=== PATIENT | female | born 1995 | race American Indian/Alaskan Native ===

== ENCOUNTER 2017-04-27 15:42 | Emergency (ER) | payer SELFPAY ==
--- NOTE | 2017-04-27 16:00 | Emergency Department Report ---
Chief Complaint: Abdominal Pain Stated Complaint: ABD/BACK PAIN Time Seen by Provider: 04/27/17 15:57 - HPI History of Present Illness: pt c/o chronic back pain and new abd pain. - ROS Review of Systems: -n/v/d - dysuria - Exam Physical Exam: PT looks well, non toxic. pt's abd soft, luq ttp MSE screening note: Focused history and physical exam performed. Due to findings the following was ordered: labs ED Disposition for MSE Condition: Stable
[2017-04-27 16:27] LABS: Basophils % (Auto) 0.5 % (0.0-1.8); Eosinophils % (Auto) 1.1 % (0.0-4.3); Hematocrit 45.5 % (30.3-42.9); Hemoglobin 15.1 gm/dl (10.1-14.3); Mean Corpuscular HGB Conc 33 % (30-34); Mean Corpuscular Hemoglobin 31 pg (28-32); Mean Corpuscular Volume 94 fl (79-97); Platelet Count 216 K/mm3 (140-440); Red Blood Count 4.85 M/mm3 (3.65-5.03); Red Cell Distribution Width 13.2 % (13.2-15.2); White Blood Count 5.8 K/mm3 (4.5-11.0)
[2017-04-27 17:10] LABS: Bilirubin,Urine NEG (Negative); Blood,Urine NEG (Negative); Ketones,Urine NEG (Negative); Leukocyte Esterase,Urine NEG (Negative); Mucus,Urine FEW /HPF; Nitrite,Urine NEG (Negative); Protein,Urine <15 mg/dL mg/dL (Negative); RBC,Urine < 1.0 /HPF (0.0-6.0); Urobilinogen,Urine < 2.0 mg/dL (<2.0)
[2017-04-27 17:12] LABS: WBC,Urine < 1.0 /HPF (0.0-6.0)
[2017-04-27 17:56] LABS: Alanine Aminotransferase 11 units/L (7-56); Albumin 4.9 g/dL (3.9-5); Albumin/Globulin Ratio 1.5 %; Alkaline Phosphatase 80 units/L (35-129); BUN/Creatinine Ratio 16.66; Blood Urea Nitrogen 10 mg/dL (7-17); Calcium 9.4 mg/dL (8.4-10.2); Carbon Dioxide 24 mmol/L (22-30); Glucose 84 mg/dL (65-100); Total Protein 8.1 g/dL (6.3-8.2)
[2017-04-27 17:57] LABS: Anion Gap 20 mmol/L; Chloride 101.5 mmol/L (98-107); Potassium 4.1 mmol/L (3.6-5.0); Sodium 141 mmol/L (137-145)
[2017-04-27] MEDS ORDERED: TYLENOL ONE (22:31)
[2017-04-27] MEDS ORDERED: TYLENOL PO ONE (22:33)
[2017-04-27] MEDS ORDERED: NACL 0.9% 1000 ML 1,000 ML IV ONE (23:11)
[2017-04-27] MEDS ORDERED: MORPHINE IV ONE (23:11)
[2017-04-27] MEDS ORDERED: TORADOL IV ONE (23:11)
--- NOTE | 2017-04-27 23:12 | Emergency Department Report ---
ED General Adult HPI - General Chief complaint: Abdominal Pain Stated complaint: ABD/BACK PAIN Time Seen by Provider: 04/27/17 15:57 Source: patient, RN notes reviewed Mode of arrival: Ambulatory Limitations: No Limitations - History of Present Illness Initial comments: This is a 22-year-old female. She is previously unknown to me. She does not have a primary care doctor. She denies a history of abdominal surgeries. The patient presents to the ER complaining of lower back pain and lower abdominal pain. The lower back pain is bilateral paralumbar, sharp, achy, and it has been present "since I was born." It does not radiate anywhere, there is no bladder or bowel retention or incontinence, and there is no saddle anesthesia. The patient also complains of lower abdominal pain. The pain is in the bilateral lower quadrants and radiates to the back. It started yesterday morning. No fevers or chills. No chest pain or shortness of breath. No vaginal discharge. No irritative or obstructive urinary symptoms. The patient indicates that she is not sexually active with men. -: Gradual Location: back, abdomen, pelvis Radiation: back Severity scale (0 -10): 9 Quality: aching Consistency: intermittent Improves with: rest Worsens with: movement Associated Symptoms: denies: confusion, chest pain, cough, diaphoresis, fever/ chills, headaches, loss of appetite, malaise, nausea/vomiting, rash, shortness of breath, syncope, weakness - Related Data Previous Rx's Medication Instructions Recorded Last Taken Type Ibuprofen [Motrin] 600 mg PO Q8H PRN #30 tablet 04/28/17 Unknown Rx Ondansetron [Zofran Odt] 4 mg PO QID PRN #20 tab.rapdis 04/28/17 Unknown Rx Polyethylene Glycol 3350 [Miralax 17 gm PO QDAY #30 packet 04/28/17 Unknown Rx 3350] Allergies Allergy/AdvReac Type Severity Reaction Status Date / Time No Known Allergies Allergy Verified 04/27/17 22:35 ED Review of Systems ROS: Stated complaint: ABD/BACK PAIN Other details as noted in HPI Constitutional: denies: fever Eyes: denies: vision change ENT: denies: epistaxis Respiratory: denies: cough Cardiovascular: denies: chest pain Gastrointestinal: abdominal pain Genitourinary: as per HPI. denies: dysuria Musculoskeletal: back pain Skin: denies: rash, lesions Neurological: as per HPI Psychiatric: as per HPI ED Past Medical Hx - Past Medical History Previous Medical History?: No - Surgical History Past Surgical History?: No - Social History Smoking Status: Current Every Day Smoker Substance Use Type: Alcohol - Medications Home Medications: Home Medications Medication Instructions Recorded Confirmed Last Taken Type Ibuprofen [Motrin] 600 mg PO Q8H PRN #30 tablet 04/28/17 Unknown Rx Ondansetron [Zofran Odt] 4 mg PO QID PRN #20 tab.rapdis 04/28/17 Unknown Rx Polyethylene Glycol 3350 [Miralax 17 gm PO QDAY #30 packet 04/28/17 Unknown Rx 3350] ED Physical Exam - General Limitations: No Limitations General appearance: alert, in no apparent distress - Head Head exam: Present: atraumatic, normocephalic - Eye Eye exam: Present: normal appearance, EOMI. Absent: nystagmus - ENT ENT exam: Present: normal exam, normal orophraynx, mucous membranes moist, normal external ear exam - Neck Neck exam: Present: normal inspection, full ROM. Absent: tenderness, meningismus - Respiratory Respiratory exam: Present: normal lung sounds bilaterally. Absent: respiratory distress, wheezes, rales, rhonchi, stridor, chest wall tenderness, accessory muscle use, decreased breath sounds, prolonged expiratory - Cardiovascular Cardiovascular Exam: Present: regular rate, normal rhythm, normal heart sounds. Absent: bradycardia, tachycardia, irregular rhythm, systolic murmur, diastolic murmur, rubs, gallop - GI/Abdominal GI/Abdominal exam: Present: soft, tenderness, normal bowel sounds, other (there is mild bilateral lower quadrant abdominal tenderness. There is no rebound, guarding or peritoneal signs.). Absent: distended, guarding, rebound, rigid, pulsatile mass - External exam: Present: normal external exam Speculum exam: Present: normal speculum exam, cervical discharge, other ( escorted by nurse Lizabeth Faustin). Absent: vaginal bleeding Bi-manual exam: Present: normal bi-manual exam. Absent: cervical motion tendernes, adnexal tenderness, adnexal mass - Extremities Exam Extremities exam: Present: normal inspection, full ROM, normal capillary refill. Absent: tenderness, pedal edema, joint swelling, calf tenderness - Back Exam Back exam: Present: normal inspection, full ROM. Absent: tenderness, CVA tenderness (R), CVA tenderness (L), muscle spasm, paraspinal tenderness, vertebral tenderness - Neurological Exam Neurological exam: Present: alert, oriented X3, normal gait, other (Extraocular movements intact. Tongue midline. No facial droop. Facial sensation intact to light touch in the V1, V2, V3 distribution bilaterally. 5 and 5 strength in 4 extremities.. Sensation is intact to light touch in 4 extremities.). Absent : motor sensory deficit - Psychiatric Psychiatric exam: Present: normal affect, normal mood - Skin Skin exam: Present: warm, dry, intact, normal color. Absent: rash ED Course Vital Signs 04/27/17 04/27/17 04/27/17 15:55 22:29 22:56 Temperature 98.2 F 99.9 F H Pulse Rate 67 88 Respiratory 16 16 20 Rate Blood Pressure 124/58 109/64 O2 Sat by Pulse 100 100 100 Oximetry 04/28/17 04/28/17 00:01 00:02 Temperature Pulse Rate Respiratory 20 20 Rate Blood Pressure O2 Sat by Pulse Oximetry - Reevaluation(s) Reevaluation #1: 04/28/17 00:31 Differential diagnosis: Urinary tract infection, endometriosis, ovarian cyst, colitis, diverticulitis, ovarian torsion, pelvic inflammatory disease Assessment and plan: 22-year-old female with lower abdominal pain and back pain. She has a low-grade temperature, has a GCS of 15, with an NIH score of 0. Laboratory studies unremarkable, urinalysis is not consistent with UTI. We will treat the patient symptomatically. We will perform a gynecological examination. CT scan is pending. Reevaluation #2: 04/28/17 01:20 Gynecologic examination is benign. CT scan suggests constipation versus slow transit. Abdomen is soft on repeat examination. Given benign gynecologic examination, I don't believe patient requires emergent gynecologic imaging at this time. Patient will be discharged with pain medication, nausea medication, and MiraLAX. Diet and lifestyle modification instructions are reviewed with the patient, who verbalized understanding. Return precautions are reviewed. ED Medical Decision Making - Lab Data Result diagrams: 04/27/17 16:14 04/27/17 16:14 Vital Signs 04/27/17 04/27/17 04/27/17 15:55 22:29 22:56 Temperature 98.2 F 99.9 F H Pulse Rate 67 88 Respiratory 16 16 20 Rate Blood Pressure 124/58 109/64 O2 Sat by Pulse 100 100 100 Oximetry 04/28/17 04/28/17 00:01 00:02 Temperature Pulse Rate Respiratory 20 20 Rate Blood Pressure O2 Sat by Pulse Oximetry Lab Results 04/27/17 04/27/17 04/27/17 Range/Units 16:14 16:14 16:14 WBC 5.8 (4.5-11.0) K/mm3 RBC 4.85 (3.65-5.03) M/mm3 Hgb 15.1 H (10.1-14.3) gm/dl Hct 45.5 H (30.3-42.9) % MCV 94 (79-97) fl MCH 31 (28-32) pg MCHC 33 (30-34) % RDW 13.2 (13.2-15.2) % Plt Count 216 (140-440) K/mm3 Lymph % (Auto) 26.3 (13.4-35.0) % [place] % (Auto) 6.8 (0.0-7.3) % Eos % (Auto) 1.1 (0.0-4.3) % Baso % (Auto) 0.5 (0.0-1.8) % Lymph # 1.5 (1.2-5.4) K/mm3 [place] # 0.4 (0.0-0.8) K/mm3 Eos # 0.1 (0.0-0.4) K/mm3 Baso # 0.0 (0.0-0.1) K/mm3 Seg Neutrophils % 65.3 (40.0-70.0) % Seg Neutrophils # 3.8 (1.8-7.7) K/mm3 Sodium 141 (137-145) mmol/L Potassium 4.1 (3.6-5.0) mmol/L Chloride 101.5 (98-107) mmol/L Carbon Dioxide 24 (22-30) mmol/L Anion Gap 20 mmol/L BUN 10 (7-17) mg/dL Creatinine 0.6 L (0.7-1.2) mg/dL Estimated GFR > 60 ml/min BUN/Creatinine Ratio 16.66 % Glucose 84 (65-100) mg/dL Calcium 9.4 (8.4-10.2) mg/dL Total Bilirubin 0.30 (0.1-1.2) mg/dL AST 16 (5-40) units/L ALT 11 (7-56) units/L Alkaline Phosphatase 80 (35-129) units/L Total Protein 8.1 (6.3-8.2) g/dL Albumin 4.9 (3.9-5) g/dL Albumin/Globulin Ratio 1.5 % Lipase (13-60) units/L HCG, Qual Negative (Negative) Urine Color (Yellow) Urine Turbidity (Clear) Urine pH (5.0-7.0) Ur Specific [place] (1.003-1.030) Urine Protein (Negative) mg/dL Urine Glucose (UA) (Negative) mg/dL Urine Ketones (Negative) mg/dL Urine Blood (Negative) Urine Nitrite (Negative) Urine Bilirubin (Negative) Urine Urobilinogen (<2.0) mg/dL Ur Leukocyte Esterase (Negative) Urine WBC (Auto) (0.0-6.0) /HPF Urine RBC (Auto) (0.0-6.0) /HPF U Epithel Cells (Auto) (0-13.0) /HPF Urine Mucus /HPF 04/27/17 04/27/17 Range/Units 16:14 16:47 WBC (4.5-11.0) K/mm3 RBC (3.65-5.03) M/mm3 Hgb (10.1-14.3) gm/dl Hct (30.3-42.9) % MCV (79-97) fl MCH (28-32) pg MCHC (30-34) % RDW (13.2-15.2) % Plt Count (140-440) K/mm3 Lymph % (Auto) (13.4-35.0) % [place] % (Auto) (0.0-7.3) % Eos % (Auto) (0.0-4.3) % Baso % (Auto) (0.0-1.8) % Lymph # (1.2-5.4) K/mm3 [place] # (0.0-0.8) K/mm3 Eos # (0.0-0.4) K/mm3 Baso # (0.0-0.1) K/mm3 Seg Neutrophils % (40.0-70.0) % Seg Neutrophils # (1.8-7.7) K/mm3 Sodium (137-145) mmol/L Potassium (3.6-5.0) mmol/L Chloride (98-107) mmol/L Carbon Dioxide (22-30) mmol/L Anion Gap mmol/L BUN (7-17) mg/dL Creatinine (0.7-1.2) mg/dL Estimated GFR ml/min BUN/Creatinine Ratio % Glucose (65-100) mg/dL Calcium (8.4-10.2) mg/dL Total Bilirubin (0.1-1.2) mg/dL AST (5-40) units/L ALT (7-56) units/L Alkaline Phosphatase (35-129) units/L Total Protein (6.3-8.2) g/dL Albumin (3.9-5) g/dL Albumin/Globulin Ratio % Lipase 23 (13-60) units/L HCG, Qual (Negative) Urine Color Straw (Yellow) Urine Turbidity Clear (Clear) Urine pH 6.0 (5.0-7.0) Ur Specific [place] 1.008 (1.003-1.030) Urine Protein <15 mg/dl (Negative) mg/dL Urine Glucose (UA) Neg (Negative) mg/dL Urine Ketones Neg (Negative) mg/dL Urine Blood Neg (Negative) Urine Nitrite Neg (Negative) Urine Bilirubin Neg (Negative) Urine Urobilinogen < 2.0 (<2.0) mg/dL Ur Leukocyte Esterase Neg (Negative) Urine WBC (Auto) < 1.0 (0.0-6.0) /HPF Urine RBC (Auto) < 1.0 (0.0-6.0) /HPF U Epithel Cells (Auto) 3.0 (0-13.0) /HPF Urine Mucus Few /HPF - Radiology Data Radiology results: report reviewed, image reviewed There is a left-sided adnexal cyst. There is likely physiologic fluid in the pelvis. Ears moderate stool burden with equalization of the terminal ileum. Possible slow transit/constipation. Critical care attestation.: If time is entered above; I have spent that time in minutes in the direct care of this critically ill patient, excluding procedure time. ED Disposition Clinical Impression: Abdominal pain Disposition: TO HOME OR SELFCARE Is pt being admited?: No Does the pt Need Aspirin: No Condition: Stable Instructions: Abdominal Pain (ED), High Fiber Diet (ED), Constipation (ED) Additional Instructions: Take the pain medication, nausea medication as directed. Drink 6-8 cups of water per day. Increased consumption of fruits, fiber, vegetables, green vegetables. Follow up with a primary care doctor or documentation supervisor within the next 10-[address] Corcoran is a local primary care doctor. Dr. Mabry is a local gynecology specialist. Symptoms most likely coming from constipation. This will likely take weeks to months to improve. Use the MiraLAX as directed, but this medication will work best if you begin to consume appropriate quantity of water. Dr. Ritchie is a local gastroenterology specialist. If abdominal pain and constipation persist for more than 6-8 weeks, please contact his office to arrange follow-up. Return to the ER right away with ear pain, worsened pain, migration of pain, fevers, chills, chest pain, shortness of breath, confusion, intractable nausea or vomiting, inability to tolerate liquid feeds. Cultures were sent today. Results will be available in the next 3-5 days. Please have a primary care doctor contact the medical records department to obtain culture results. Referrals: PRIMARY CARE, [Primary Care Provider] - 3-5 Days SAJI COLIN MD [Staff Physician] - 3-5 Days VIC RITCHIE MD [Staff Physician] - 3-5 Days IZABELLA MABRY MD [Staff Physician] - 3-5 Days
--- NOTE | 2017-04-28 00:56 | Cat Scan Report ---
FINAL REPORT EXAM: CT ABDOMEN PELVIS W CON HISTORY: lower abd pain TECHNIQUE: CT images are acquired through the Abdomen and Pelvis following intravenous administration of contrast. Transaxial, coronal and sagittal reformations are provided. PRIORS: None FINDINGS: Partially visualized intrathoracic contents are unremarkable. The liver, gallbladder, pancreas, spleen, and adrenal glands are normal. Kidneys show no worrisome lesions, hydronephrosis, or calculi. Urinary bladder is unremarkable. Small and large bowel are normal in caliber. Moderate stool burden. Fecalization of the terminal ileum. No adjacent inflammatory stranding or edema. Appendix is normal. No free air, free fluid, or lymphadenopathy identified. Aorta is normal in course and caliber. Retroverted uterus. Small amount of free fluid in the pelvis is likely physiologic. Left adnexal functional cyst. Superficial soft tissues are unremarkable. No acute or aggressive appearing skeletal findings. IMPRESSION: No acute intra-abdominal process. Moderate stool burden with fecalization of the terminal ileum. Please correlate for slow transit/constipation. Small volume of likely physiologic free fluid in the pelvis with a left adnexal cyst measuring up to 2 cm. Consider gynecologic etiology for patient's symptoms to include normal physiologic processes and follow-up with pelvic ultrasound as warranted.
[2017-04-28 01:23] VITALS: BP 120/69
== END 2017-04-28 02:05 | disposition home or self-care (01) ==
LOC: ED 15:42
DX: R10.31 Right lower quadrant pain (principal); R10.32 Left lower quadrant pain; F17.200 Nicotine dependence, unspecified, uncomplicated
CPT/HCPCS: 36415; 74177; 80053; 81001; 83690; 84703; 85025; 87210; 87591; 96361; 96374; 96375; 99284; J1885; J2270; J7030; Q9967

== ENCOUNTER 2018-03-10 09:50 | Emergency (ER) | payer OTHER ==
[2018-03-10 10:24] LABS: Bacteria,Urine 1+ /HPF (Negative); Bilirubin,Urine NEG (Negative); Blood,Urine NEG (Negative); Color,Urine Yellow (Yellow); Mucus,Urine FEW /HPF; Protein,Urine <15 mg/dL mg/dL (Negative)
[2018-03-10 10:27] LABS: HCG Qualitative,Urine Negative (Negative)
[2018-03-10] MEDS ORDERED: NACL 0.9% 1000 ML 1,000 ML IV ONE (10:51)
[2018-03-10] MEDS ORDERED: PEPCID IV ONE (10:51)
[2018-03-10] MEDS ORDERED: ZOFRAN IV ONE (10:51)
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
[2018-03-10 11:17] LABS: Basophils % (Auto) 0.5 % (0.0-1.8); Eosinophils # (Auto) 0.2 K/mm3 (0.0-0.4); Eosinophils % (Auto) 2.8 % (0.0-4.3); Hematocrit 43.3 % (30.3-42.9); Hemoglobin 14.5 gm/dl (10.1-14.3); Lymphocytes % (Auto) 23.1 % (13.4-35.0); Mean Corpuscular HGB Conc 34 % (30-34); Mean Corpuscular Hemoglobin 31 pg (28-32); Mean Corpuscular Volume 92 fl (79-97); Monocytes # (Auto) 0.5 K/mm3 (0.0-0.8); Monocytes % (Auto) 5.7 % (0.0-7.3); Platelet Count 252 K/mm3 (140-440); Red Blood Count 4.69 M/mm3 (3.65-5.03)
[2018-03-10 11:30] LABS: Amphetamine Screen,Urine PRESUMPTIVE NEGATIVE; Benzodiazepines Screen,Urine PRESUMPTIVE NEGATIVE; Methadone Screen,Urine PRESUMPTIVE NEGATIVE; Opiate Screen,Urine PRESUMPTIVE NEGATIVE
[2018-03-10 11:58] LABS: Cannabinoid Screen,Urine PRESUMPTIVE POSITIVE; Cocaine Screen,Urine PRESUMPTIVE POSITIVE
[2018-03-10 11:59] LABS: Alanine Aminotransferase 9 units/L (7-56); Albumin 4.2 g/dL (3.9-5); BUN/Creatinine Ratio 14; Blood Urea Nitrogen 10 mg/dL (7-17); Calcium 8.9 mg/dL (8.4-10.2); Hemolysis Index 5
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
[2018-03-10 13:08] VITALS: BP 121/71
[2018-03-11] MEDS ORDERED: NACL ONE (16:49)
== END 2018-03-10 13:09 | disposition home or self-care (01) ==
LOC: ED 09:50
DX: R11.2 Nausea with vomiting, unspecified (principal); R53.83 Other fatigue; R19.7 Diarrhea, unspecified
CPT/HCPCS: 36415; 80053; 80307; 81001; 81025; 85025; 96361; 96374; 96375; 99283; J2405; J7030

== ENCOUNTER 2018-05-24 00:37 | Emergency (ER) | payer OTHER ==
[2018-05-24] MEDS ORDERED: TYLENOL ONE (02:00)
[2018-05-24 02:17] LABS: Bilirubin,Urine NEG (Negative); Blood,Urine NEG (Negative); Color,Urine Yellow (Yellow); HCG Qualitative,Urine Negative (Negative); Mucus,Urine FEW /HPF; Protein,Urine <15 mg/dL mg/dL (Negative)
[2018-05-24] MEDS ORDERED: TYLENOL PO ONE (02:18)
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
[2018-05-24] MEDS ORDERED: MOTRIN PO ONE (06:20)
[2018-05-24] MEDS ORDERED: MOTRIN ONE (06:22)
[2018-05-24 06:29] VITALS: BP 109/68
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
== END 2018-05-24 06:50 | disposition home or self-care (01) ==
LOC: ED 00:37
DX: S39.012A Strain of muscle, fascia and tendon of lower back, initial encounter (principal); S16.1XXA Strain of muscle, fascia and tendon at neck level, initial encounter; R51 Headache; F17.200 Nicotine dependence, unspecified, uncomplicated; V49.49XA Driver injured in collision with other motor vehicles in traffic accident, initial encounter; Y93.89 Activity, other specified; Y92.89 Other specified places as the place of occurrence of the external cause; Y99.8 Other external cause status
CPT/HCPCS: 70450; 72100; 72125; 81001; 81025; 99284

== ENCOUNTER 2021-01-15 10:29 | Emergency (ER) | payer OTHER | END 2021-01-15 11:12 | disposition left against medical advice (07) | LOC: ED 10:29 | DX: Z53.21 Procedure and treatment not carried out due to patient leaving prior to being seen by health care provider (principal) ==

== ENCOUNTER 2021-05-27 16:25 | Emergency (ER) | payer OTHER ==
[2021-05-27 17:14] VITALS: BP 111/68
== END 2021-05-27 19:00 | disposition left against medical advice (07) ==
LOC: ED 16:25
DX: L02.31 Cutaneous abscess of buttock (principal); Z53.21 Procedure and treatment not carried out due to patient leaving prior to being seen by health care provider

== ENCOUNTER 2021-08-06 20:54 | Inpatient (IN) | payer BC, OTHER ==
[2021-08-06] MEDS ORDERED: fentaNYL 100 MCG/2 ML INJ IV PRN (22:48)
[2021-08-06] MEDS ORDERED: miSOPROStol 200 MCG TAB PR PRN (22:48)
[2021-08-06] MEDS ORDERED: ePHEDrine SULFATE 50 MG/1 ML INJ IV PRN (22:48)
[2021-08-06] MEDS ORDERED: LOPERAMIDE 2 MG CAP PO PRN (22:48)
[2021-08-06] MEDS ORDERED: TERBUTALINE 1 MG/1 ML INJ SUB-Q PRN (22:48)
[2021-08-06] MEDS ORDERED: MINERAL OIL 30 ML ORAL LIQD PO PRN (22:48)
[2021-08-06] MEDS ORDERED: LIDOCAINE (2%) 20 MG/1 ML VIAL 20 ML MDV INFILTRATI ONE (22:48)
[2021-08-06] MEDS ORDERED: CARBOPROST TROMETHAMINE 250 MCG/1 ML INJ IM PRN (22:48)
[2021-08-06] MEDS ORDERED: BUTORPHANOL 2 MG/1 ML INJ IV PRN ×2 (22:48)
[2021-08-06] MEDS ORDERED: OXYTOCIN 10 UNIT/1 ML INJ IM PRN (22:48)
[2021-08-06] MEDS ORDERED: METHYLERGONOVINE MALEATE 0.2 MG/ML VIAL IM PRN (22:48)
[2021-08-06] MEDS ORDERED: OXYTOCIN DRIP 30 UNITS/500 ML BAG IV SCH (23:00)
[2021-08-06 23:05] LABS: Hematocrit 34.7 % (30.3-42.9); Hemoglobin 11.3 gm/dl (10.1-14.3); Mean Corpuscular HGB Conc 33 % (30-34); Mean Corpuscular Volume 77 fl (79-97); Platelet Count 306 K/mm3 (140-440); Red Blood Count 4.53 M/mm3 (3.65-5.03)
[2021-08-06] MEDS: ACETAMINOPHEN 325 MG TAB PO PRN (23:09)
[2021-08-06] MEDS: LACTATED RINGERS 1,000 ML IV SCH (23:13)
[2021-08-06] MEDS ORDERED: AMPICILLIN/NS 2 GM/100 ML 2 GM/100 ML BAG IV ONE ×2 (23:15→23:57)
[2021-08-06] MEDS ORDERED: miSOPROStol 25 MCG TAB ONE (23:39)
[2021-08-06] MEDS ORDERED: miSOPROStol 25 MCG TAB PO ONE (23:40)
[2021-08-06] MEDS ORDERED: DINOPROSTONE 10 MG VAG SUPP VG ONE (23:45)
[2021-08-06] MEDS ORDERED: miSOPROStol 25 MCG TAB PO PRN (23:50)
[2021-08-06] MEDS: metroNIDAZOLE 0.75% VAGINAL GEL 70 GM VG SCH (23:55)
--- NOTE | 2021-08-07 10:32 | History and Physical Report ---
History of Present Illness Date of examination: 08/07/21 Date of admission: 08/06/21 20:54 Chief complaint: scheduled IOL for GDM History of present illness: 26 y/o presented to [facility] for an IOL r/t GDM, S>D, and obesity. She denied VB or LOF and admitted to pos FM. She initiated her pnc @ [facility] @ 6 3/7 wks. Pt was co managed by [facility] for GDM and obesity. Pt has a hx of syphillis, trich and pos GBS. Pt has been non complaint with pnv. Surg and family hx unremarkable per pt. She was admitted to L&D for an IOL. 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, trichomonas, other (neg JULIA for trich) Family/Genetic History: none Social history: single, full code - Obstetrical History Expected Date of Delivery: 08/10/21 Actual Gestation: 39 Week(s) 4 Day(s) : 2 Para: 1 Number of Living Children: 1 Medications and Allergies Allergies Allergy/AdvReac Type Severity Reaction Status Date / Time No Known Allergies Allergy Verified 05/24/18 00:44 Home Medications Medication Instructions Recorded Confirmed Last Taken Type No Known Home Medications [No 07/27/21 07/27/21 Unknown History Reported Home Medications] Active Meds: Active Medications Acetaminophen (Acetaminophen 325 Mg Tab) 650 mg PO Q4H PRN PRN Reason: Pain, Mild (1-3) Last Admin: 08/06/21 23:09 Dose: 650 mg Documented by: Butorphanol Tartrate (Butorphanol 2 Mg/1 Ml Inj) 1 mg IV Q2H PRN PRN Reason: Pain, Moderate(4-6) LABOR PAIN Butorphanol Tartrate (Butorphanol 2 Mg/1 Ml Inj) 2 mg IV Q2H PRN PRN Reason: Pain , Severe (7-10) Carboprost Tromethamine (Carboprost Tromethamine 250 Mcg/1 Ml Inj) 250 mcg IM ONCE PRN PRN Reason: Uterine Bleeding Ephedrine Sulfate (Ephedrine Sulfate 50 Mg/1 Ml Inj) 10 mg IV Q2M PRN PRN Reason: Hypotension Fentanyl (Fentanyl 100 Mcg/2 Ml Inj) 100 mcg IV Q2H PRN PRN Reason: Pain,Severe (7-10) LABOR PAIN Oxytocin/Sodium Chloride (Pitocin/Ns 30 Unit/500ml) 30 units in 500 mls @ 2 mls/hr IV TITR JAMEL; Protocol Lactated Ringer's (Lactated Ringers) 1,000 mls @ 125 mls/hr IV DIRECT JAMEL Last Admin: 08/06/21 23:13 Dose: 125 mls/hr Documented by: Oxytocin/Sodium Chloride (Pitocin/Ns 30 Unit/500ml) 30 units in 500 mls @ 40 mls/hr IV TITR JAMEL; Protocol Loperamide HCl (Loperamide 2 Mg Cap) 2 mg PO ONCE PRN PRN Reason: give with Hemabate Methylergonovine Maleate (Methylergonovine Maleate 0.2 Mg/Ml Vial) 0.2 mg IM ONCE PRN PRN Reason: Uterine Bleeding Metronidazole (Metronidazole 0.75% Vaginal Gel 70 Gm) 1 applicator VG BID [facility] Last Admin: 08/06/21 23:55 Dose: 1 applicator Documented by: Mineral Oil (Mineral Oil 30 Ml Oral Liqd) 30 ml PO QHS PRN PRN Reason: Constipation Misoprostol (Misoprostol 200 Mcg Tab) 800 mcg OH ONCE PRN PRN Reason: Uterine Bleeding Oxytocin (Oxytocin 10 Unit/1 Ml Inj) 10 unit IM ONCE PRN PRN Reason: Uterine Bleeding Terbutaline Sulfate (Terbutaline 1 Mg/1 Ml Inj) 0.25 mg SUB-Q ONCE PRN PRN Reason: Hyperstimulation/Hypertonicity Review of Systems All systems: negative Eyes: deferred Ears, nose, mouth and throat: deferred Breasts: normal Genitourinary: vaginal discharge, other (milky white odorless vag d/c noted. STI cul was taken.) - Vital Signs Vital signs: Vital Signs Pulse Pulse Ox 67 99 08/06/21 21:42 08/06/21 21:42 Temp Pulse Resp BP Pulse Ox 98.5 F 92 H 18 120/77 100 08/06/21 23:15 08/07/21 10:21 08/06/21 23:15 08/07/21 09:54 08/07/21 10:21 - Physical Exam Breasts: Positive: normal Abdomen: Positive: normal appearance, soft, normal bowel sounds Genitourinary (Female): Positive: normal external genitalia, normal perenium Vulva: both: normal Vagina: Positive: normal moisture, discharge (milky white vag d/c) Uterus: Positive: enlarged, normal contour, other (gravid) Adnexa: both: normal Anus/Rectum: Positive: normal perianal skin Extremities: Positive: normal - Obstetrical FHR: auscultation normal, category 1 Uterine Contraction Monitor Mode: External Cervical Dilatation: 2 Cervical Effacement Percentage: 50 station: -4 Uterine Contraction Pattern: Irregular Uterine Tone Measurement Phase: Resting Uterine Contraction Intensity: Mild Results Result Diagrams: 08/06/21 22:15 Abnormal lab results 08/06/21 08/06/21 Range/Units 22:15 22:15 MCV 77 L (79-97) fl MCH 25 L (28-32) pg RDW 17.0 H (13.2-15.2) % Syphilis IgG Antibody Reactive A (NonReactive) All other labs normal. Assessment and Plan A: IUP@ 39.4 wks GDM and obesity + GBS H/O syphillis and trich S>D Non complaint with pnv Vag pain with vag d/c P: Admit to L&D Cytotec per Dr Humphries's orders FSBS Q4 hr now; Q2H while in labor Notify NICU GBS protocal Check RPR Vag cul needed Anticipate Consulted with Dr Garber - Patient Problems (1) Supervision of normal IUP (intrauterine ) in multigravida Current Visit: Yes Status: Acute (2) GDM (gestational diabetes mellitus) Current Visit: Yes Status: Acute (3) Positive GBS test Current Visit: Yes Status: Acute
[2021-08-07] MEDS: LACTATED RINGERS 1,000 ML IV SCH ×3 (11:59→20:30)
[2021-08-07] MEDS ORDERED: miSOPROStol 25 MCG TAB PO PRN (12:00)
--- NOTE | 2021-08-07 12:42 | Ultrasound Report ---
ULTRASOUND OBSTETRIC COMPLETE INDICATION / CLINICAL INFORMATION: Evaluate position and weight. Clinical Gestational Age (GA) in weeks.days: 39.4 TECHNIQUE: Transabdominal. COMPARISON: OB ultrasound dated 07/29/2021 and 07/26/2021. FINDINGS: NUMBER: Single PRESENTATION: cephalic PLACENTA: anterior and free of the os. MATERNAL ADNEXA: No significant abnormality. AMNIOTIC FLUID VOLUME: normal AMNIOTIC FLUID INDEX (ANDREIA) in cm (if measured): 18.8 ANATOMY: Detailed anatomic evaluation was not performed. MEASUREMENTS: - Biparietal Diameter = 9.4 cm = 38.2 weeks.days - Head Circumference = 35.4 cm = 41.3 weeks.days - Abdominal Circumference = 40 cm = estimated age not provided - Femur Length = 7.55 cm = 38.4 weeks.days - Estimated Weight (in grams, if calculated): 4466 - Heart Rate (beats per minute): 133 ADDITIONAL FINDINGS: None. PERCENTILE ESTIMATED WEIGHT (if calculated): 98 AVERAGE ULTRASOUND AGE (AUA) in weeks.days = 39.3 IMPRESSION: 1. Single intrauterine with AUA of 39.3 weeks.days 2. No significant sonographic abnormality. Signer Name: Luis Bradford MD Signed: 08/07/2021 12:38 PM Workstation Name: [id number]
[2021-08-07] MEDS: AMPICILLIN/NS 1 GM/50 ML 1 GM/50 ML BAG IV SCH (16:24)
[2021-08-07] MEDS ORDERED: NALOXONE 2 MG/2 ML INJ IV PRN (19:58)
[2021-08-07] MEDS ORDERED: ePHEDrine SULFATE 50 MG/1 ML INJ IV PRN (19:58)
--- NOTE | 2021-08-07 19:58 | Anesthesia Consultation ---
Anesthesia Consult and Med Hx Date of service: 08/07/21 - Airway Anesthetic Teeth Evaluation: Poor ROM Head & Neck: Adequate Mental/Hyoid Distance: Adequate Mallampati Class: Class III Intubation Access Assessment: Probably Good - Pulmonary Exam CTA: Yes - Cardiac Exam Cardiac Exam: RRR - Pre-Operative Health Status ASA Pre-Surgery Classification: ASA3 Proposed Anesthetic Plan: Epidural - Pulmonary Hx Smoking: No Hx Asthma: No Hx Respiratory Symptoms: No SOB: No COPD: No Home Oxygen Therapy: No Hx Pneumonia: No Hx Sleep Apnea: No - Cardiovascular System Hx Hypertension: No Hx Coronary Artery Disease: No Hx Heart Attack/AMI: No Hx Angina: No Hx Percutaneous Transluminal Coronary Angioplasty (PTCA): No Hx Cardia Arrhythmia: No Hx Pacemaker: No Hx Internal Defibrillator: No Hx Valvular Heart Disease: No Hx Heart Murmur: No Hx Peripheral Vascular Disease: No - Central Nervous System Hx Neuromuscular Disorder: No Hx Seizures: No CVA: No Hx Back Pain: Yes Hx Psychiatric Problems: No - Gastrointestinal Hx Ulcer: No Hx Gastroesophageal Reflux Disease: Yes - Endocrine Hx Renal Disease: No Hx End Stage Renal Disease: No Hx Cirrhosis: No Hx Liver Disease: No Hx Insulin Dependent Diabetes: No Hx Non-Insulin Dependent Diabetes: Yes (GDM) Hx Thyroid Disease: No Hx Hypothyroidism: No Hx Hyperthyroidism: No - Hematic Hx Anemia: No Hx Sickle Cell Disease: Yes (SCT) - Other Systems Hx Alcohol Use: No Hx Substance Use: No Hx Cancer: No Hx Obesity: Yes
[2021-08-07] MEDS: fentaNYL-BUPIV 2 MCG/ML-0.125% 200 MCG/100 ML BAG EPIDURAL SCH (23:03)
--- NOTE | 2021-08-07 23:42 | Progress Note ---
Labor Epidural - Labor Epidural Start Time: 20:22 Stop Time: 22:29 Performed by:: RACHANA QUIROZ Procedure: Patient is requesting a laboring epidural for laboring pain. Patient IDed, H&P reviewed, all questions and concerns were answered, and consent was signed. Timeout was performed at bedside. Patient in sitting position. Sterile prep and drape was performed. [3] ml of 1% lidocaine skin wheal at L[3]- L [4]. 18[facility] was advanced to loss of resistance with saline technique 8cm. Negative CSF negative blood. Epidural catheter advanced to [12] centimeters. [NEGATIVE] Aspiration [NEGATIVE] test dose. Sterile dressing applied. Patient tolerated procedure.
[2021-08-08] MEDS: AMPICILLIN/NS 1 GM/50 ML 1 GM/50 ML BAG IV SCH ×7 (00:42→22:57)
[2021-08-08] MEDS: fentaNYL-BUPIV 2 MCG/ML-0.125% 200 MCG/100 ML BAG EPIDURAL SCH ×3 (07:24→23:24)
--- NOTE | 2021-08-08 10:13 | Progress Note ---
Assessment and Plan A: IUP@ 39.4wks GDM, S>D GBS pos P: Continue monitoring AROM (cl fluid) IFM, IUPC inserted Start Pitocin Continue q4 fsbs checks then q2 in active labor Anticipate Dr Humphries agrees with plan - Patient Problems (1) Supervision of normal IUP (intrauterine ) in multigravida Current Visit: Yes Status: Acute (2) GDM (gestational diabetes mellitus) Current Visit: Yes Status: Acute (3) Positive GBS test Current Visit: Yes Status: Acute Subjective - Subjective Date of service: 08/08/21 Principal diagnosis: IUP@39.7wks Interval history: 26 y/o presented to [facility] for an IOL r/t GDM, S>D, and obesity. She denied VB or LOF and admitted to pos FM. She initiated her pnc @ [facility] loc @ 6 3/7 wks. Pt was co managed by [facility] for GDM and obesity. Pt has a hx of syphillis, trich and pos GBS. Pt has been non complaint with pnv. Surg and family hx unremarkable per pt. She was admitted to L&D for an IOL. Patient reports: movement normal, contractions Objective - Vital Signs Vital Signs: Vital Signs - 12hr 08/07/21 08/07/21 08/07/21 22:16 22:17 22:21 Temperature Pulse Rate 84 121 H 138 H Blood Pressure O2 Sat by Pulse 91 91 99 Oximetry O2 Sat by Pulse Oximetry [ Bilateral] 08/07/21 08/07/21 08/07/21 22:26 22:31 22:33 Temperature Pulse Rate 127 H 98 H 111 H Blood Pressure 144/78 144/79 O2 Sat by Pulse 100 100 Oximetry O2 Sat by Pulse Oximetry [ Bilateral] 08/07/21 08/07/21 08/07/21 22:36 22:40 22:41 Temperature Pulse Rate 112 H 86 80 Blood Pressure 122/63 O2 Sat by Pulse 93 99 Oximetry O2 Sat by Pulse Oximetry [ Bilateral] 08/07/21 08/07/21 08/07/21 22:42 22:45 22:46 Temperature Pulse Rate 96 H 96 H 106 H Blood Pressure 128/66 121/61 O2 Sat by Pulse 100 Oximetry O2 Sat by Pulse Oximetry [ Bilateral] 08/07/21 08/07/21 08/07/21 22:48 22:51 22:54 Temperature Pulse Rate 104 H 68 76 Blood Pressure 110/58 108/59 112/66 O2 Sat by Pulse 100 Oximetry O2 Sat by Pulse Oximetry [ Bilateral] 08/07/21 08/07/21 08/07/21 22:56 22:57 23:00 Temperature Pulse Rate 71 91 H 76 Blood Pressure 108/56 102/59 O2 Sat by Pulse 100 Oximetry O2 Sat by Pulse Oximetry [ Bilateral] 08/07/21 08/07/21 08/07/21 23:01 23:03 23:06 Temperature Pulse Rate 68 61 59 L Blood Pressure 108/59 108/59 O2 Sat by Pulse 100 100 Oximetry O2 Sat by Pulse Oximetry [ Bilateral] 08/07/21 08/07/21 08/07/21 23:09 23:11 23:12 Temperature Pulse Rate 67 65 71 Blood Pressure 107/62 117/60 O2 Sat by Pulse 100 Oximetry O2 Sat by Pulse Oximetry [ Bilateral] 08/07/21 08/07/21 08/07/21 23:15 23:16 23:18 Temperature Pulse Rate 58 L 59 L 56 L Blood Pressure 126/66 126/67 O2 Sat by Pulse 100 Oximetry O2 Sat by Pulse Oximetry [ Bilateral] 08/07/21 08/07/21 08/07/21 23:21 23:24 23:26 Temperature Pulse Rate 60 54 L 91 H Blood Pressure 129/72 130/72 O2 Sat by Pulse 100 100 Oximetry O2 Sat by Pulse Oximetry [ Bilateral] 08/07/21 08/07/21 08/07/21 23:27 23:30 23:31 Temperature Pulse Rate 88 80 86 Blood Pressure 117/61 115/61 O2 Sat by Pulse 100 Oximetry O2 Sat by Pulse Oximetry [ Bilateral] 08/07/21 08/07/21 08/07/21 23:33 23:36 23:39 Temperature Pulse Rate 74 68 86 Blood Pressure 110/53 120/56 115/58 O2 Sat by Pulse 100 Oximetry O2 Sat by Pulse Oximetry [ Bilateral] 08/07/21 08/07/21 08/07/21 23:41 23:42 23:45 Temperature Pulse Rate 66 64 66 Blood Pressure 120/58 118/62 O2 Sat by Pulse 100 Oximetry O2 Sat by Pulse Oximetry [ Bilateral] 08/07/21 08/07/21 08/07/21 23:46 23:48 23:51 Temperature Pulse Rate 68 75 68 Blood Pressure 114/58 115/58 O2 Sat by Pulse 100 100 Oximetry O2 Sat by Pulse Oximetry [ Bilateral] 08/07/21 08/07/21 08/07/21 23:54 23:56 23:57 Temperature Pulse Rate 76 78 82 Blood Pressure 107/56 110/58 O2 Sat by Pulse 99 Oximetry O2 Sat by Pulse Oximetry [ Bilateral] 08/08/21 08/08/21 08/08/21 00:00 00:01 00:03 Temperature Pulse Rate 74 69 74 Blood Pressure 111/61 118/59 O2 Sat by Pulse 100 Oximetry O2 Sat by Pulse Oximetry [ Bilateral] 08/08/21 08/08/21 08/08/21 00:06 00:09 00:11 Temperature Pulse Rate 76 75 80 Blood Pressure 109/57 116/58 O2 Sat by Pulse 99 83 L Oximetry O2 Sat by Pulse Oximetry [ Bilateral] 08/08/21 08/08/21 08/08/21 00:12 00:16 00:17 Temperature Pulse Rate 60 66 70 Blood Pressure 118/57 O2 Sat by Pulse 61 L 98 Oximetry O2 Sat by Pulse Oximetry [ Bilateral] 08/08/21 08/08/21 08/08/21 00:18 00:21 00:22 Temperature Pulse Rate 137 H 67 75 Blood Pressure 121/59 122/58 O2 Sat by Pulse 88 Oximetry O2 Sat by Pulse Oximetry [ Bilateral] 08/08/21 08/08/21 08/08/21 00:24 00:27 00:30 Temperature Pulse Rate 65 67 68 Blood Pressure 110/55 107/58 110/62 O2 Sat by Pulse 100 Oximetry O2 Sat by Pulse Oximetry [ Bilateral] 08/08/21 08/08/21 08/08/21 00:32 00:33 00:36 Temperature Pulse Rate 65 70 56 L Blood Pressure 114/61 111/59 O2 Sat by Pulse 100 Oximetry O2 Sat by Pulse Oximetry [ Bilateral] 08/08/21 08/08/21 08/08/21 00:37 00:39 00:42 Temperature Pulse Rate 59 L 64 59 L Blood Pressure 113/57 116/62 O2 Sat by Pulse 100 99 Oximetry O2 Sat by Pulse Oximetry [ Bilateral] 08/08/21 08/08/21 08/08/21 00:47 00:52 00:57 Temperature Pulse Rate 59 L 58 L 61 Blood Pressure O2 Sat by Pulse 100 100 100 Oximetry O2 Sat by Pulse Oximetry [ Bilateral] 08/08/21 08/08/21 08/08/21 01:02 01:07 01:12 Temperature Pulse Rate 59 L 60 55 L Blood Pressure O2 Sat by Pulse 100 100 100 Oximetry O2 Sat by Pulse Oximetry [ Bilateral] 08/08/21 08/08/21 08/08/21 01:14 01:17 01:22 Temperature Pulse Rate 57 L 56 L 76 Blood Pressure 118/59 O2 Sat by Pulse 100 99 Oximetry O2 Sat by Pulse Oximetry [ Bilateral] 08/08/21 08/08/21 08/08/21 01:27 01:32 01:37 Temperature Pulse Rate 60 59 L 62 Blood Pressure O2 Sat by Pulse 100 100 100 Oximetry O2 Sat by Pulse Oximetry [ Bilateral] 08/08/21 08/08/21 08/08/21 01:42 01:43 01:47 Temperature Pulse Rate 59 L 58 L 61 Blood Pressure 115/58 O2 Sat by Pulse 100 100 Oximetry O2 Sat by Pulse Oximetry [ Bilateral] 08/08/21 08/08/21 08/08/21 01:52 01:57 02:02 Temperature Pulse Rate 63 65 65 Blood Pressure O2 Sat by Pulse 100 100 100 Oximetry O2 Sat by Pulse Oximetry [ Bilateral] 08/08/21 08/08/21 08/08/21 02:07 02:12 02:13 Temperature Pulse Rate 63 66 65 Blood Pressure 108/56 O2 Sat by Pulse 100 100 Oximetry O2 Sat by Pulse Oximetry [ Bilateral] 08/08/21 08/08/21 08/08/21 02:17 02:22 02:27 Temperature Pulse Rate 63 61 69 Blood Pressure O2 Sat by Pulse 100 100 100 Oximetry O2 Sat by Pulse Oximetry [ Bilateral] 08/08/21 08/08/21 08/08/21 02:32 02:36 02:37 Temperature Pulse Rate 66 106 H 78 Blood Pressure O2 Sat by Pulse 100 88 100 Oximetry O2 Sat by Pulse Oximetry [ Bilateral] 08/08/21 08/08/21 08/08/21 02:42 02:43 02:47 Temperature Pulse Rate 86 82 65 Blood Pressure 115/56 O2 Sat by Pulse 100 100 Oximetry O2 Sat by Pulse Oximetry [ Bilateral] 08/08/21 08/08/21 08/08/21 02:52 02:57 03:02 Temperature Pulse Rate 66 67 69 Blood Pressure O2 Sat by Pulse 100 100 100 Oximetry O2 Sat by Pulse Oximetry [ Bilateral] 08/08/21 08/08/21 08/08/21 03:07 03:12 03:13 Temperature Pulse Rate 64 68 65 Blood Pressure 111/59 O2 Sat by Pulse 100 99 Oximetry O2 Sat by Pulse Oximetry [ Bilateral] 08/08/21 08/08/21 08/08/21 03:17 03:22 03:27 Temperature Pulse Rate 67 67 68 Blood Pressure O2 Sat by Pulse 100 100 100 Oximetry O2 Sat by Pulse Oximetry [ Bilateral] 08/08/21 08/08/21 08/08/21 03:32 03:37 03:42 Temperature Pulse Rate 69 68 64 Blood Pressure O2 Sat by Pulse 100 100 99 Oximetry O2 Sat by Pulse Oximetry [ Bilateral] 08/08/21 08/08/21 08/08/21 03:43 03:47 03:52 Temperature Pulse Rate 71 71 70 Blood Pressure 112/54 O2 Sat by Pulse 100 99 Oximetry O2 Sat by Pulse Oximetry [ Bilateral] 08/08/21 08/08/21 08/08/21 03:57 04:02 04:07 Temperature Pulse Rate 71 65 72 Blood Pressure O2 Sat by Pulse 99 100 99 Oximetry O2 Sat by Pulse Oximetry [ Bilateral] 08/08/21 08/08/21 08/08/21 04:12 04:13 04:17 Temperature Pulse Rate 77 75 88 Blood Pressure 110/55 O2 Sat by Pulse 99 100 Oximetry O2 Sat by Pulse Oximetry [ Bilateral] 08/08/21 08/08/21 08/08/21 04:22 04:27 04:32 Temperature Pulse Rate 84 90 79 Blood Pressure O2 Sat by Pulse 99 99 99 Oximetry O2 Sat by Pulse Oximetry [ Bilateral] 08/08/21 08/08/21 08/08/21 04:37 04:42 04:43 Temperature Pulse Rate 77 69 73 Blood Pressure 110/59 O2 Sat by Pulse 100 100 Oximetry O2 Sat by Pulse Oximetry [ Bilateral] 08/08/21 08/08/21 08/08/21 04:47 04:52 04:57 Temperature Pulse Rate 77 74 83 Blood Pressure O2 Sat by Pulse 99 100 99 Oximetry O2 Sat by Pulse Oximetry [ Bilateral] 08/08/21 08/08/21 08/08/21 05:02 05:07 05:12 Temperature Pulse Rate 72 75 90 Blood Pressure O2 Sat by Pulse 99 99 98 Oximetry O2 Sat by Pulse Oximetry [ Bilateral] 08/08/21 08/08/21 08/08/21 05:13 05:17 05:22 Temperature Pulse Rate 83 74 77 Blood Pressure 105/57 O2 Sat by Pulse 94 98 97 Oximetry O2 Sat by Pulse Oximetry [ Bilateral] 08/08/21 08/08/21 08/08/21 05:27 05:32 05:37 Temperature Pulse Rate 79 79 75 Blood Pressure O2 Sat by Pulse 96 96 95 Oximetry O2 Sat by Pulse Oximetry [ Bilateral] 08/08/21 08/08/21 08/08/21 05:42 05:43 05:47 Temperature Pulse Rate 80 78 77 Blood Pressure 84/48 O2 Sat by Pulse 96 94 96 Oximetry O2 Sat by Pulse Oximetry [ Bilateral] 08/08/21 08/08/21 08/08/21 05:52 05:57 06:02 Temperature Pulse Rate 79 83 81 Blood Pressure O2 Sat by Pulse 96 97 97 Oximetry O2 Sat by Pulse Oximetry [ Bilateral] 08/08/21 08/08/21 08/08/21 06:07 06:12 06:14 Temperature Pulse Rate 83 75 86 Blood Pressure 115/54 O2 Sat by Pulse 97 98 Oximetry O2 Sat by Pulse Oximetry [ Bilateral] 08/08/21 08/08/21 08/08/21 06:15 06:17 06:22 Temperature Pulse Rate 88 94 H 88 Blood Pressure O2 Sat by Pulse 80 L 98 98 Oximetry O2 Sat by Pulse Oximetry [ Bilateral] 08/08/21 08/08/21 08/08/21 06:27 06:32 06:37 Temperature Pulse Rate 78 74 77 Blood Pressure O2 Sat by Pulse 98 97 97 Oximetry O2 Sat by Pulse Oximetry [ Bilateral] 08/08/21 08/08/21 08/08/21 06:42 06:43 06:47 Temperature Pulse Rate 66 71 72 Blood Pressure 116/57 O2 Sat by Pulse 97 98 Oximetry O2 Sat by Pulse Oximetry [ Bilateral] 08/08/21 08/08/21 08/08/21 06:52 06:57 07:00 Temperature Pulse Rate 72 74 Blood Pressure O2 Sat by Pulse 99 98 Oximetry O2 Sat by Pulse 100 Oximetry [ Bilateral] 08/08/21 08/08/21 08/08/21 07:02 07:07 07:12 Temperature Pulse Rate 65 64 59 L Blood Pressure O2 Sat by Pulse 98 98 97 Oximetry O2 Sat by Pulse Oximetry [ Bilateral] 08/08/21 08/08/21 08/08/21 07:13 07:17 07:22 Temperature Pulse Rate 69 67 91 H Blood Pressure 116/58 O2 Sat by Pulse 99 99 Oximetry O2 Sat by Pulse Oximetry [ Bilateral] 08/08/21 08/08/21 08/08/21 07:27 07:32 07:37 Temperature 98.4 F Pulse Rate 71 69 64 Blood Pressure O2 Sat by Pulse 100 100 99 Oximetry O2 Sat by Pulse Oximetry [ Bilateral] 08/08/21 08/08/21 08/08/21 07:42 07:44 07:47 Temperature Pulse Rate 66 70 68 Blood Pressure 129/61 O2 Sat by Pulse 97 99 Oximetry O2 Sat by Pulse Oximetry [ Bilateral] 08/08/21 08/08/21 08/08/21 07:52 07:57 08:02 Temperature Pulse Rate 71 72 73 Blood Pressure O2 Sat by Pulse 100 99 98 Oximetry O2 Sat by Pulse Oximetry [ Bilateral] 08/08/21 08/08/21 08/08/21 08:07 08:12 08:13 Temperature Pulse Rate 72 75 75 Blood Pressure 122/58 O2 Sat by Pulse 99 97 Oximetry O2 Sat by Pulse Oximetry [ Bilateral] 08/08/21 08/08/21 08/08/21 08:17 08:22 08:27 Temperature Pulse Rate 73 82 85 Blood Pressure O2 Sat by Pulse 98 98 98 Oximetry O2 Sat by Pulse Oximetry [ Bilateral] 08/08/21 08/08/21 08/08/21 08:32 08:37 08:42 Temperature Pulse Rate 77 84 75 Blood Pressure O2 Sat by Pulse 98 98 98 Oximetry O2 Sat by Pulse Oximetry [ Bilateral] 08/08/21 08/08/21 08/08/21 08:43 08:47 08:52 Temperature Pulse Rate 75 83 79 Blood Pressure 126/61 O2 Sat by Pulse 98 99 Oximetry O2 Sat by Pulse Oximetry [ Bilateral] 08/08/21 08/08/21 08/08/21 08:57 09:02 09:07 Temperature Pulse Rate 95 H 78 70 Blood Pressure O2 Sat by Pulse 98 100 99 Oximetry O2 Sat by Pulse Oximetry [ Bilateral] 08/08/21 08/08/21 08/08/21 09:12 09:13 09:17 Temperature Pulse Rate 64 68 73 Blood Pressure 102/50 O2 Sat by Pulse 97 98 Oximetry O2 Sat by Pulse Oximetry [ Bilateral] 08/08/21 08/08/21 08/08/21 09:22 09:27 09:32 Temperature Pulse Rate 94 H 87 82 Blood Pressure O2 Sat by Pulse 99 98 97 Oximetry O2 Sat by Pulse Oximetry [ Bilateral] 08/08/21 08/08/21 08/08/21 09:37 09:42 09:43 Temperature Pulse Rate 80 88 100 H Blood Pressure 131/75 O2 Sat by Pulse 100 100 Oximetry O2 Sat by Pulse Oximetry [ Bilateral] 08/08/21 08/08/21 08/08/21 09:47 09:52 09:57 Temperature Pulse Rate 80 74 83 Blood Pressure O2 Sat by Pulse 99 100 100 Oximetry O2 Sat by Pulse Oximetry [ Bilateral] 08/08/21 08/08/21 10:02 10:07 Temperature Pulse Rate 84 67 Blood Pressure O2 Sat by Pulse 100 96 Oximetry O2 Sat by Pulse Oximetry [ Bilateral] - Exam Breasts: deferred Abdomen: Present: normal appearance, soft, normal bowel sounds Vulva: both: normal Uterus: Present: normal FHR: auscultation normal, category 1 Uterine Contraction Monitor Mode: External Cervical Dilatation: 4 Cervical Effacement Percentage: 60 station: -3 Uterine Contraction Pattern: Irregular Uterine Tone Measurement Phase: Resting Uterine Contraction Intensity: Moderate Extremities: normal - Labs Labs: Abnormal Labs 08/06/21 08/06/21 08/08/21 22:15 22:15 06:17 MCV 77 L MCH 25 L RDW 17.0 H POC Glucose 62 L Syphilis IgG Antibody Reactive A Laboratory Results - last 24 hr 08/06/21 08/07/21 08/07/21 22:15 13:56 18:58 POC Glucose 85 75 RPR Titer Nr Coronavirus (PCR) 08/07/21 08/08/21 08/08/21 Unknown 00:39 06:17 POC Glucose 78 62 L RPR Titer Coronavirus (PCR) Negative
[2021-08-08] MEDS: OXYTOCIN DRIP 30 UNITS/500 ML BAG IV SCH ×2 (10:30→16:10)
[2021-08-08] MEDS: LACTATED RINGERS 1,000 ML IV SCH (19:54)
--- NOTE | 2021-08-08 21:40 | Event Note ---
Date: 08/08/21 FHT 142 CAT I FHT; UC are occurring irregularly. SVE 5%/-1 Pt would like to wait until her epidural is assessed by anesthesia before Pitocin is resumed.
[2021-08-08] MEDS: ACETAMINOPHEN 325 MG TAB PO PRN (22:18)
[2021-08-08] MEDS ORDERED: ONDANSETRON 4 MG/2 ML INJ IV ONE (22:24)
[2021-08-09] MEDS: ACETAMINOPHEN 325 MG TAB PO PRN ×2 (02:04→09:41)
--- NOTE | 2021-08-09 02:23 | Event Note ---
Date: 08/09/21 I was at the desk and nurse stated CNMW gave gent in addition to current amp. FHR 180's remote from delivery. Will proceed for emergent section for category III FHR. Pelvic /. Plan of care discussed with patient and consents signed. Pt will receive amp/gent/clinda . NICU and anesthesia notified.
[2021-08-09] MEDS ORDERED: METOCLOPRAMIDE 10 MG/2 ML INJ ONE (02:31)
[2021-08-09] MEDS ORDERED: FAMOTIDINE 20 MG/2 ML INJ IV ONE (02:32)
[2021-08-09] MEDS ORDERED: BICITRA ORAL LIQD 30ML ONE (02:32)
[2021-08-09] MEDS ORDERED: LIDOCAINE 2%/EPINEPHRINE 1:200,000 VIAL (20 ML) INFILTRATI ONE (02:38)
[2021-08-09] MEDS ORDERED: HYDROmorphone 1 MG/1 ML INJ IV PRN ×2 (02:47)
[2021-08-09] MEDS ORDERED: NALOXONE 0.4 MG/1 ML INJ IV PRN ×2 (02:47→05:11)
[2021-08-09] MEDS ORDERED: MORPHINE 4 MG/1 ML INJ IV PRN ×2 (02:47→05:11)
[2021-08-09] MEDS ORDERED: ONDANSETRON 4 MG/2 ML INJ IV PRN (02:47)
--- NOTE | 2021-08-09 02:47 | Anesthesia Day of Surgery ---
Anesthesia Day of Surgery - Day of Surgery Patient Examined: Yes Patient H&P Reviewed: Yes Patient is NPO: Yes Beta Blockers: No Cardiac Clearance: No Pulmonary Clearance: No Leonard's Test: Negative
[2021-08-09] MEDS ORDERED: ceFAZolin/STERILE WATER 2 GM/20 ML SYRINGE IV ONE (02:55)
[2021-08-09] MEDS ORDERED: GENTAMICIN/NS 120MG/100ML 120 MG/100 ML BAG IV SCH (03:00)
[2021-08-09] MEDS ORDERED: ONDANSETRON 4 MG/2 ML INJ ONE ×2 (03:02)
[2021-08-09] MEDS ORDERED: SODIUM CHLORIDE 0.9% IRR 1,500 ML BOTTLE IR ONE (03:11)
[2021-08-09] MEDS ORDERED: WATER FOR IRRIG STERILE 1,500 ML BOTTLE IR ONE (03:11)
[2021-08-09] MEDS ORDERED: KETOROLAC 30 MG/1 ML INJ ONE (03:31)
[2021-08-09] MEDS ORDERED: miSOPROStol 100 MCG TAB ONE (04:58)
[2021-08-09] MEDS ORDERED: FAMOTIDINE 20 MG/2 ML INJ IV NR (05:00)
[2021-08-09] MEDS ORDERED: METOCLOPRAMIDE 10 MG/2 ML INJ IV NR (05:00)
[2021-08-09] MEDS ORDERED: BICITRA ORAL LIQD 30ML PO ONE (05:01)
[2021-08-09] MEDS ORDERED: SIMETHICONE 80 MG CHEW TAB PO PRN (05:11)
[2021-08-09] MEDS ORDERED: HYDROCORTISONE 25 MG RECTAL SUPP PR PRN (05:11)
[2021-08-09] MEDS ORDERED: MAGNESIUM HYDROXIDE (MOM) ORAL LIQD UDC PO PRN (05:11)
[2021-08-09] MEDS ORDERED: IBUPROFEN 600 MG TAB PO PRN (05:11)
[2021-08-09] MEDS ORDERED: WITCH HAZEL/ GLYCERIN PAD TP PRN (05:11)
[2021-08-09] MEDS ORDERED: SENNOSIDES 8.6 MG TAB PO PRN (05:11)
[2021-08-09] MEDS ORDERED: LANOLIN/ZINC/DIMETHICONE (LANSINOH) 7 GM TP PRN (05:11)
--- NOTE | 2021-08-09 05:38 | Procedure Note ---
OB Delivery Note - Delivery Date of Delivery: 08/09/21 Surgeon: TRICIA ANDRADE Estimated blood loss: other (983cc per QBL) - Section Preop diagnosis: nonreassuring FHR tracing (remoted from delivery, FHR 180's), other (chorioamnionitis) section procedure: primary low transverse Disposition: floor Complications: uterine atony (treated with IV pitocin and cytotec 800mcg per rectum) Narrative: Date: 08/09/21 Surgeon: Tricia Andrade MD Preop Dx: term IUP, gestational DM, non-reassuring FHR, Morbid Obesity, chorioamnionitis Postop Dx: same Procedure : Primary section Anesthesia: Epidural Intake: 1200cc crystalloids Output: 200cc clear urine EBL: 983cc per QBL After the risks, benefits and alternatives of procedure discussed, patient signed consents and was taken to the operating room. Pt already received epidural anesthesia. After same was adequate, patient was prepped and draped in the usual sterile fashion. Javier catheter in place and draining clear urine. Pt was given prophylactic antibiotic per protocol and time out was done Pfannenstiel skin incision was made and taken sharply to the fascia and the incision extended using electrocautery. Superior edge of the fascia was grasped with cassy clamps and the rectus muscle using blunt dissection and also using electrocautery. Lower portion of the fascia also with electrocautery. Rectus muscle in the midline and Peritoneal cavity entered bluntly and extended with good visualization of the bladder. The bladder flap was created sharply using metzenbaum scissors. Lower uterine segment then entered transversely and amniotic sac entered using allys clamps. Uterine incision extended using bandage scissors. Infant's head was wedged deep in the pelvic and circulating nurse had to push upwards from the vagina to assist to delivery with persistent O-P presentation. Infant was bulb suctioned, cord clamped and baby handed to waiting pediatricians. Placenta then delivered completely and uterine cavity cleared of all clots and debri. The uterus was not exteriorized and incision noted to extend down on the left side towards the bladder. The uterine incision was closed in 2 layers using 0-monocryl suture in a running locked fashion and then an additional layer of imbrication suture. Excellent hemostasis noted. Due to the extension downwards of the incision close to bladder peritoneum, bladder injury ruled out with sterile milk bladder distension and no extravasaion of milk noted intraabdominally. Hemostasis remains excellent The gutters were cleared of clots and debri and anterior peritoneum closed using 3-0 vicryl suture and rectus muscle reapproximated using 0-vicryl suture in a running fashion. Rectus fascia closed with 0-vicryl suture continuously and subcutaneous tissue copiously irrigated with normal saline and re-approximated using 4-0 vicryl suture. Excellent hemostasis remains. The skin was closed with 4-0 monocryl suture and steristrips placed with pressure dressing. Sponge, lap, instrument and needle counts x3 were normal. Patient tolerated the procedure well and was taken to recovery room stable. Pt to receive broad spectrum antibiotic for acute endomyometritis, with chorioamnionitis intrapartum Findings: Viable male infant, APGARS 8/9 and weight 4550g. Boggy Normal shaped uterus, normal tubes and ovaries bilaterally. Pathology: placenta - Infant A at 1 minute: 8 at 5 minutes: 9 Gender: Male (wt 4550g; O-P presentation, mucoid clear fluid; Umbilical a pH 7.33; BE -6.8)
[2021-08-09] MEDS ORDERED: OXYTOCIN DRIP 30 UNITS/500 ML BAG IV SCH (06:00)
[2021-08-09] MEDS: GENTAMICIN/NS 120MG/100ML 120 MG/100 ML BAG IV SCH ×2 (08:25→20:00)
[2021-08-09] MEDS: PRENATAL VIT27-FE FUMARATE-FOLIC ACID VIT TAB PO SCH (09:42)
[2021-08-09] MEDS: FERROUS SULFATE 325 MG TAB PO SCH (09:42)
[2021-08-09 18:25] LABS: Hematocrit 31.4 % (30.3-42.9); Hemoglobin 10.2 gm/dl (10.1-14.3)
[2021-08-09] MEDS: oxyCODONE /ACETAMINOPHEN 5-325MG TAB PO PRN (19:30)
--- NOTE | 2021-08-09 20:35 | Event Note ---
Date: 08/09/21 Patient with low grade temp. and chills. CBC, CMP, urinalysis, urine culture, blood culture ordered. Patient is receiving triple antibiotics. Consulted with Dr. Stephens re: patient.
[2021-08-09 21:37] LABS: Lymphocytes # (Auto) 1.1 K/mm3 (1.2-5.4); Lymphocytes % (Auto) 6.6 % (13.4-35.0); Mean Corpuscular HGB Conc 32 % (30-34); Mean Corpuscular Volume 77 fl (79-97); Platelet Count 217 K/mm3 (140-440); Red Cell Distribution Width 17.5 % (13.2-15.2)
[2021-08-09 21:41] LABS: Alanine Aminotransferase 19 units/L (7-56); Albumin 2.5 g/dL (3.9-5); BUN/Creatinine Ratio 8; Blood Urea Nitrogen 7 mg/dL (7-17); Calcium 8.4 mg/dL (8.4-10.2); Hemolysis Index 0
[2021-08-09] MEDS: IBUPROFEN 800 MG TAB PO PRN (22:15)
[2021-08-09] MEDS: metroNIDAZOLE 0.75% VAGINAL GEL 70 GM VG SCH (22:15)
--- NOTE | 2021-08-09 22:28 | Post Anesthesia Evaluation ---
- Post Anesthesia Evaluation Patient Participated: Yes Airway Patent: Yes Stable Respiratory Function: Yes Nausea/Vomiting: No Temp > 96.8F: Yes Pain Manageable: Yes Adequeate Hydration: Yes Anesthesia Complications: No Block Receding Appropriately: Yes Patient on Ventilator: No
[2021-08-10] MEDS: LACTATED RINGERS 1,000 ML IV SCH ×2 (00:29→07:42)
[2021-08-10 00:56] LABS: Bilirubin,Urine NEG (Negative); Blood,Urine SM (Negative); Color,Urine Straw (Yellow); Mucus,Urine FEW /HPF; Protein,Urine <15 mg/dL mg/dL (Negative); Urobilinogen,Urine < 2.0 mg/dL (<2.0)
[2021-08-10] MEDS: GENTAMICIN/NS 120MG/100ML 120 MG/100 ML BAG IV SCH (06:01)
[2021-08-10] MEDS: oxyCODONE /ACETAMINOPHEN 5-325MG TAB PO PRN ×3 (07:53→23:28)
--- NOTE | 2021-08-10 08:40 | Progress Note ---
Assessment and Plan Continue routine PP care chorio with persistent low grade temp: continue abx Leukocytosis: repeat labs Gianni Stephens MD Subjective - Subjective Date of service: 08/10/21 Principal diagnosis: IUP@39.7wks Patient reports: appetite normal, voiding normally, pain well controlled, ambulating normally [place]: doing well Objective - Vital Signs Latest vital signs: Vital Signs Temp Pulse Resp BP BP Pulse Ox 08/10/21 05:59 98 08/10/21 03:15 98 08/10/21 01:55 98 08/10/21 00:55 98.7 F 91 H 18 127/67 08/10/21 00:05 98 08/09/21 22:15 98 08/09/21 21:45 99.8 F H 117 H 18 132/85 08/09/21 20:05 98 08/09/21 15:49 99.1 F 104 H 18 136/56 08/09/21 08:44 100.5 F H 16 138/95 Intake and Output 08/09/21 08/10/21 08/10/21 23:59 07:59 15:59 Intake Total 370 1022.083 Output Total 500 800 Balance -130 222.083 Intake: IV 250 902.083 CLEOCIN 900 MG/50 mL 900 50 mg In 50 ml @ 100 mls/hr IV Q8H JAMEL Rx#:[id number] GENTAMICIN/NS 120MG/100ML 100 120 mg In 100 ml @ 200 mls/hr IV Q8H JAMEL Rx#: [id number] Lactated Ringers 1,000 ml 902.083 @ 125 mls/hr IV DIRECT JAMEL Rx#:[id number] ceFAZolin 2 GM In NaCl 0. 100 9% 100 ml @ 200 mls/hr IV Q8H JAMEL Rx#:[id number] Intake, Free Water 120 120 Output: Urine 500 800 Indwelling Catheter 500 800 Other: Total, Output Amount 500 800 - Exam Breasts: Present: deferred Cardiovascular: Present: Regular rate Lungs: Present: Clear to auscultation Abdomen: Present: normal appearance, soft, normal bowel sounds Uterus: Present: fundal height below umbilicus Extremities: Present: normal Deep Tendon Reflex Grade: Normal +2 Incision: Present: normal, dry, intact - Labs Labs: Abnormal lab results 08/09/21 08/09/2108/09/21 Range/Units 21:06 21:06 23:00 WBC 16.8 H (4.5-11.0) K/mm3 Hgb 10.0 L (10.1-14.3) gm/dl MCV 77 L (79-97) fl MCH 25 L (28-32) pg RDW 17.5 H (13.2-15.2) % Lymph % (Auto) 6.6 L (13.4-35.0) % Lymph # (Auto) 1.1 L (1.2-5.4) K/mm3 [place] # (Auto) 1.0 H (0.0-0.8) K/mm3 Seg Neutrophils % 87.4 H (40.0-70.0) % Seg Neutrophils # 14.7 H (1.8-7.7) K/mm3 Sodium 132 L (137-145) mmol/L Carbon Dioxide 19 L (22-30) mmol/L Glucose 127 H (65-100) mg/dL AST 49 H (5-40) units/L Alkaline Phosphatase 162 H (35-129) units/L Total Protein 5.1 L (6.3-8.2) g/dL Albumin 2.5 L (3.9-5) g/dL Urine WBC (Auto) 10.0 H (0.0-6.0) /HPF
[2021-08-10 10:02] LABS: Basophils % (Auto) 0.2 % (0.0-1.8); Eosinophils % (Auto) 0.2 % (0.0-4.3); Hematocrit 30.8 % (30.3-42.9); Hemoglobin 10.1 gm/dl (10.1-14.3); Lymphocytes % (Auto) 6.6 % (13.4-35.0); Mean Corpuscular HGB Conc 33 % (30-34); Mean Corpuscular Volume 76 fl (79-97); Monocytes % (Auto) 6.4 % (0.0-7.3); Platelet Count 238 K/mm3 (140-440); Red Blood Count 4.07 M/mm3 (3.65-5.03); Red Cell Distribution Width 17.4 % (13.2-15.2)
[2021-08-10] MEDS: PRENATAL VIT27-FE FUMARATE-FOLIC ACID VIT TAB PO SCH (10:35)
[2021-08-10] MEDS: FERROUS SULFATE 325 MG TAB PO SCH (10:35)
[2021-08-10] MEDS: IBUPROFEN 800 MG TAB PO PRN (12:43)
[2021-08-10] MEDS: metroNIDAZOLE 0.75% VAGINAL GEL 70 GM VG SCH (23:29)
[2021-08-11] MEDS: oxyCODONE /ACETAMINOPHEN 5-325MG TAB PO PRN ×3 (08:39→21:40)
[2021-08-11] MEDS: PRENATAL VIT27-FE FUMARATE-FOLIC ACID VIT TAB PO SCH (12:11)
[2021-08-11] MEDS: metroNIDAZOLE 0.75% VAGINAL GEL 70 GM VG SCH ×2 (12:11→21:43)
[2021-08-11] MEDS: FERROUS SULFATE 325 MG TAB PO SCH (12:11)
--- NOTE | 2021-08-11 13:22 | Progress Note ---
Assessment and Plan A: /postop day 2 S/P primary LTCS. Anemia. Leukocytosis. S/P antibiotics for chorio (now afebrile). P: Encouraged patient to ambulate. Iron supplementation. Patient is awaiting consult visit from urologist. Repeat CBC ordered. Await urine C&S results. Subjective - Subjective Date of service: 08/11/21 Principal diagnosis: /postop day 2 S/P primary LTCS Interval history: Afebrile for > 24 hours and antibiotics have been discontinued. Still with Javier catheter, draining clear yellow urine. Blood cultures negative. Urine culture still pending. Patient reports: appetite normal, pain well controlled, flatus, ambulating normally, no dizzy ambulation, no nauseated : doing well, bottle feeding Objective - Vital Signs Latest vital signs: Vital Signs Temp Pulse Resp BP BP Pulse Ox Pulse Ox 08/11/21 08:39 16 08/11/21 08:10 100 08/11/21 08:06 98.5 F 96 H 18 128/77 98 08/11/21 05:47 98 08/11/21 03:20 97 08/11/21 02:05 97 08/10/21 23:25 98 08/10/21 23:04 98.2 F 18 119/67 08/10/21 21:20 97 08/10/21 20:30 97 08/10/21 16:16 98.2 F 18 118/60 Intake and Output 08/10/21 08/11/21 08/11/21 23:59 07:59 15:59 Intake Total 360 360 440 Output Total 1900 1900 Balance 360 -1540 -1460 Intake: Oral 360 440 Intake, Free Water 360 Output: Urine 1900 1900 Indwelling Catheter 1899 1900 Other: Total, Intake Amount 240 200 Total, Output Amount 900 1000 - Exam Cardiovascular: Present: Regular rate Lungs: Present: Clear to auscultation Abdomen: Present: normal appearance, soft, normal bowel sounds. Absent: distention, tenderness, guarding, rigidity Uterus: Present: normal, firm, fundal height below umbilicus. Absent: bogginess, tenderness Extremities: Present: normal. Absent: tenderness, edema Incision: Present: normal, dry, intact
[2021-08-11 16:02] LABS: Basophils % (Auto) 0.1 % (0.0-1.8); Eosinophils # (Auto) 0.1 K/mm3 (0.0-0.4); Eosinophils % (Auto) 0.9 % (0.0-4.3); Hemoglobin 9.8 gm/dl (10.1-14.3); Lymphocytes # (Auto) 1.9 K/mm3 (1.2-5.4); Mean Corpuscular HGB Conc 33 % (30-34); Mean Corpuscular Volume 76 fl (79-97); Monocytes # (Auto) 0.8 K/mm3 (0.0-0.8); Monocytes % (Auto) 6.2 % (0.0-7.3); Platelet Count 266 K/mm3 (140-440); Red Blood Count 3.94 M/mm3 (3.65-5.03); Red Cell Distribution Width 18.2 % (13.2-15.2)
[2021-08-12] MEDS: PRENATAL VIT27-FE FUMARATE-FOLIC ACID VIT TAB PO SCH (10:25)
[2021-08-12] MEDS: IBUPROFEN 800 MG TAB PO PRN (10:25)
[2021-08-12] MEDS: FERROUS SULFATE 325 MG TAB PO SCH (10:25)
[2021-08-12] MEDS: metroNIDAZOLE 0.75% VAGINAL GEL 70 GM VG SCH (10:41)
--- NOTE | 2021-08-12 12:59 | Progress Note ---
Assessment and Plan A: S/P Primary LTCS S/P chorio ( abt completed) Possible urethral injury (montiel in place) Tachycardia Anemia BV p: Continue routine pp orders Awaiting UA C&S Encourage ambulation Continue Fe Metrogel as ordered 500cc fluid bolus Will consider hospitalist consult if urine cul is neg - Patient Problems (1) Supervision of normal IUP (intrauterine ) in multigravida Current Visit: Yes Status: Acute (2) GDM (gestational diabetes mellitus) Current Visit: Yes Status: Acute (3) Positive GBS test Current Visit: Yes Status: Acute Subjective - Subjective Date of service: 08/12/21 Principal diagnosis: /postop day 2 S/P primary LTCS Interval history: 26 y/o presented to [facility] for an IOL r/t GDM, S>D, and obesity. She denied VB or LOF and admitted to pos FM. She initiated her pnc @ [facility] loc @ 6 3/7 wks. Pt was co managed by [facility] for GDM and obesity. Pt has a hx of syphillis, trich and pos GBS. Pt has been non complaint with pnv. Surg and family hx unremarkable per pt. She was admitted to L&D for an IOL. Patient reports: appetite normal, voiding normally, pain well controlled, flatus (montiel in place draining adq amts cl yell urine), ambulating normally : doing well Objective - Vital Signs Latest vital signs: Vital Signs Temp Pulse Resp BP Pulse Ox Pulse Ox 08/12/21 08:10 98.3 F 106 H 22 121/66 99 08/12/21 01:24 98.2 F 115 H 18 125/65 98 08/11/21 21:40 12 08/11/21 20:30 98 08/11/21 16:20 98.4 F 18 106/54 08/11/21 15:13 16 Intake and Output 08/11/21 08/12/21 08/12/21 22:59 06:59 14:59 Intake Total 360 600 120 Output Total 1800 3400 600 Balance -1440 -2800 -480 Intake: Oral 120 Intake, Free Water 360 600 Output: Urine 1800 3400 600 Indwelling Catheter 1800 3400 600 Other: Total, Intake Amount 120 Total, Output Amount 1800 1600 600 - Exam Breasts: Present: normal Abdomen: Present: normal appearance, soft, normal bowel sounds Vulva: both: normal Uterus: Present: normal, firm Extremities: Present: normal Incision: Present: normal, dry, intact - Labs Labs: Abnormal lab results 08/11/21 Range/Units 15:36 WBC 13.7 H (4.5-11.0) K/mm3 Hgb 9.8 L (10.1-14.3) gm/dl Hct 30.0 L (30.3-42.9) % MCV 76 L (79-97) fl MCH 25 L (28-32) pg RDW 18.2 H (13.2-15.2) % Seg Neutrophils % 78.8 H (40.0-70.0) % Seg Neutrophils # 10.8 H (1.8-7.7) K/mm3
[2021-08-12] MEDS: oxyCODONE /ACETAMINOPHEN 5-325MG TAB PO PRN (15:13)
[2021-08-12 16:45] VITALS: BP 112/63
--- NOTE | 2021-08-12 17:14 | Discharge Summary ---
Providers - Providers Date of Admission: 08/06/21 20:54 Date of discharge: 08/12/21 Attending physician: SHELTON GALICIA MD 08/09/21 07:07 Consult to Physician [CONS] Urgent Comment: Consulting Provider: CORY UROLOGYZAIRA Physician Instructions: Reason For Exam: possible injury urethra, w/ insufflation of bulb Primary care physician: SHELTON GALICIA MD Hospitalization Procedure: section Laceration: none Incision: normal complications: other (possible urethral injury) Discharge diagnosis: IUP at term delivered (lga fetus.urethral injury.) [place] baby: male Hospital course: benign. needs to go home with montiel bag. Condition at discharge: Good Disposition: 01 HOME / SELF CARE / HOMELESS - Discharge Diagnoses (1) Positive GBS test Status: Acute (2) Supervision of normal IUP (intrauterine ) in multigravida Status: Acute Plan - Discharge Medications Prescriptions: Ibuprofen [Motrin] 800 mg PO Q8HR PRN 31 Days #40 tablet PRN Reason: Pain, Mild (1-3) oxyCODONE /ACETAMINOPHEN [Percocet 5/325] 1 tab PO Q4HR PRN 21 Days #30 tab PRN Reason: Pain , Severe (7-10) - Provider Discharge Summary Activity: routine, no heavy lifting 4 weeks, no strenuous exercise Diet: routine Instructions: routine Additional instructions: [] Smoking cessation referral if applicable(refer to patient education folder for contact #) [] Refer to [facility] Booklet Call your doctor immediately for: * Fever > 100.5 * Heavy vaginal bleeding ( >1 pad per hour) * Severe persistent headache * Shortness of breath * Reddened, hot, painful area to leg or breast * Drainage or odor from incision. * Keep incision clean and dry at all times and follow doctor's instructions regarding bathing/showering - Follow up plan
== END 2021-08-12 20:10 | disposition home or self-care (01) | DRG 786 ==
LOC: LD 20:54 → OB 08-09 07:08
PROC: 10D00Z1 Extraction of Products of Conception, Low, Open Approach (ICD-10-PCS; principal; 2021-08-09)
PROC: 10907ZC Drainage of Amniotic Fluid, Therapeutic from Products of Conception, Via Natural or Artificial Opening (ICD-10-PCS; 2021-08-09)
PROC: 10H07YZ Insertion of Other Device into Products of Conception, Via Natural or Artificial Opening (ICD-10-PCS; 2021-08-09)
PROC: 3E0DXGC Introduction of Other Therapeutic Substance into Mouth and Pharynx, External Approach (ICD-10-PCS; 2021-08-09)
DX: O24.429 Gestational diabetes mellitus in childbirth, unspecified control (principal); O41.1230 Chorioamnionitis, third trimester, not applicable or unspecified; O99.13 Other diseases of the blood and blood-forming organs and certain disorders involving the immune mechanism complicating the puerperium; O71.5 Other obstetric injury to pelvic organs; Z37.0 Single live birth; O99.824 Streptococcus B carrier state complicating childbirth; O99.214 Obesity complicating childbirth; Z3A.39 39 weeks gestation of pregnancy; O99.62 Diseases of the digestive system complicating childbirth; K21.9 Gastro-esophageal reflux disease without esophagitis; E66.01 Morbid (severe) obesity due to excess calories; O62.2 Other uterine inertia; D72.829 Elevated white blood cell count, unspecified; O90.81 Anemia of the puerperium; D64.9 Anemia, unspecified; Z20.822 Contact with and (suspected) exposure to COVID-19
CPT/HCPCS: 36415; 76816; 80053; 81001; 82805; 82962; 85014; 85018; 85025; 85027; 86592; 86593; 86850; 86900; 86901; 87040; 87086; 87210; 87591; 88307; G0378; J0290; J0690; J1580; J1885; J2270; J2405; J2590; J2765; J7120; U0003